=== PATIENT | male | born 2000 | race Caucasian/White ===

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

== ENCOUNTER 2022-01-17 07:52 | Emergency (ER) | payer OTHER ==
[~2022-01-17] VITALS: Ht 182.9 cm; Wt 63.5 kg
[~2022-01-17 07:52] MED LIST changes: +HYDROCO/APAP1 TA9 PO; +TORADOL PO
[2022-01-17] MEDS ORDERED: WELLBUTRIN150 M1 PO (08:38)
[2022-01-17] MEDS ORDERED: LEXAPRO20 MG PO (08:38)
[2022-01-17] MEDS ORDERED: PROTONIX20 M1 PO (08:39)
[2022-01-17 09:00] VITALS: BP 124/86
[2022-01-17 09:07] LABS: HEMATOCRIT 47.7 % (39.0-50.0); HEMOGLOBIN 16.2 g/dl (14.0-18.0); IMMATURE GRANULOCYTES 0.5 % (0.0-5.0); MEAN CELL VOLUME 91.2 fL CALC (80.0-100.0); NEUT# 3.85 thou/uL (1.82-7.42); RED BLOOD COUNT 5.23 mill/uL (4.70-6.10); RED CELL DISTRI WIDTH 11.7 % (11.5-15.5)
[2022-01-17 09:08] LABS: URINE BILIRUBIN - DIPSTICK NEGATIVE (NEGATIVE); URINE BLOOD DIPSTICK SMALL (NEGATIVE); URINE COLOR YELLOW; URINE GLUCOSE - DIPSTICK NEGATIVE (NEGATIVE); URINE KETONE NEGATIVE (NEGATIVE); URINE LEUK ESTERASE NEGATIVE (NEGATIVE); URINE PROTEIN - DIPSTICK NEGATIVE (NEG-TRACE); URINE UROBILINOGEN - DIPSTICK 0.2 E.U./dL (0.2)
[2022-01-17 09:18] LABS: URINE NITRITE - DIPSTICK NEGATIVE (Negative)
[2022-01-17 09:28] LABS: ALBUMIN 4.6 g/dL (3.2-5.0); ALKALINE PHOSPHATASE 87 u/l (38-126); ANION GAP 12 (6-22 (CALC)); BUN 14 mg/dL (9-20); BUN/CREATININE RATIO 12 (12-20 (CALC)); CARBON DIOXIDE 29 mmol/l (22-30); CHLORIDE 104 mmol/l (95-108); CREATININE 1.1 mg/dL (0.7-1.3); GFR > 60 ML/MIN (>=60 (CALC)); GFR FOR AFR.AMER. > 60 ML/MIN (>=60 (CALC)); LIPASE 79 u/l (23-300); POTASSIUM 4.1 mmol/l (3.5-5.1); SGOT/AST 26 u/l (17-59); SODIUM 140 mmol/l (137-146); TOTAL PROTEIN 7.7 g/dL (6.3-8.2)
[2022-01-17 09:30] VITALS: BP 119/86
[2022-01-17 09:33] LABS: BILIRUBIN, TOTAL 0.6 mg/dL (0.0-1.4)
[2022-01-17] MEDS ORDERED: TAMSULOSIN0.4 MG PO (09:49)
[2022-01-17 09:58] VITALS: BP 119/86
== END 2022-01-17 10:00 | disposition home or self-care (01) | DRG 694 ==
LOC: ED 07:52
PROVIDERS: Family Medicine
DX: N20.0 Calculus of kidney (principal); Z87.442 Personal history of urinary calculi

== ENCOUNTER 2024-08-26 08:48 | Emergency (ER) | payer OTHER ==
[~2024-08-26] VITALS: Ht 182.9 cm; Wt 63.0 kg
[2024-08-26] VITALS (16 sets, daily range): BP systolic 108–123; BP diastolic 68–84
[~2024-08-26 08:48] MED LIST changes: +LEXAPRO20 MG PO; +PROTONIX20 M1 PO; +TAMSULOSIN0.4 MG PO; +WELLBUTRIN150 M1 PO
[2024-08-26 09:26] LABS: URINE BILIRUBIN - DIPSTICK Negative (NEGATIVE); URINE BLOOD DIPSTICK Moderate (NEGATIVE); URINE GLUCOSE - DIPSTICK Negative (NEGATIVE); URINE KETONE Negative (NEGATIVE); URINE LEUK ESTERASE Negative (NEGATIVE); URINE NITRITE - DIPSTICK Negative (Negative); URINE PH 6.5 (4.5-8.0); URINE PROTEIN - DIPSTICK Negative (NEG-TRACE); URINE UROBILINOGEN - DIPSTICK 0.2 E.U./dL (0.2)
[2024-08-26 09:43] LABS: URINE COLOR Yellow; URINE RBC 25-50 RBC/hpf (0-5)
[2024-08-26] MEDS ORDERED: KETOROLAC TROMETHAMINE 30 MG/ML SDV IM ONE (09:55)
[2024-08-26] MEDS ORDERED: NAPROXEN500 MG PO (13:04)
[2024-08-26] MEDS ORDERED: DULCOLAX5 MG PO (13:04)
== END 2024-08-26 13:13 | disposition home or self-care (01) | DRG 694 ==
LOC: ED 08:48
PROVIDERS: Family Medicine
DX: N20.0 Calculus of kidney (principal); K21.9 Gastro-esophageal reflux disease without esophagitis; Z87.442 Personal history of urinary calculi